=== PATIENT | male | born 2000 | race African-American/Black ===

== ENCOUNTER 2021-01-05 15:01 | Emergency (ER) | payer OTHER ==
[~2021-01-05] VITALS: Ht 185.4 cm; Wt 84.1 kg
[2021-01-05 15:08] VITALS: BP 118/56
== END 2021-01-05 16:45 | disposition home or self-care (01) ==
LOC: EMS 15:09
DX: L30.9 Dermatitis, unspecified (principal); F17.200 Nicotine dependence, unspecified, uncomplicated
CPT/HCPCS: 99283; Z7502